=== PATIENT | male | born 1950 | race Caucasian/White ===

== ENCOUNTER → 2018-07-04 | Outpatient (CLI) | payer BC, OTHER ==
--- NOTE | 2018-07-04 10:42 | REP ---
Chest x-ray: Two views. History: Cough for 5 weeks. Findings: The lungs are symmetrically aerated and clear. Pleural angles are sharp. Heart size is normal. Thoracic aorta is slightly tortuous. There are degenerative changes in the shoulders. No acute bony abnormality is seen. Pulmonary vasculature is not increased. Impression: No active disease. Electronically Signed by Bandar Beasley MD 07/04/2018 10:34 A
== END ==
LOC: M RAD 10:00
PROVIDERS: ATTEND Physician Assistant Medical
DX: R05 Cough (principal)